=== PATIENT | male | born 1950 | race African-American/Black ===

== ENCOUNTER 2019-12-07 17:14 | Emergency (ER) | payer MEDICARE ==
[~2019-12-07] VITALS: Ht 182.9 cm; Wt 86.4 kg
[2019-12-07] MEDS ORDERED: LIDOCAINE/PF 1% 5 ML VIAL INJ ONE (17:45)
[2019-12-07] MEDS ORDERED: BACITRACIN 0.9 GM PACKET OINTMENT TP ONE (17:45)
[2019-12-07 18:30] VITALS: BP 126/81
== END 2019-12-07 19:02 | disposition home or self-care (01) ==
LOC: EMS 17:22
DX: S61.216A Laceration without foreign body of right little finger without damage to nail, initial encounter (principal); W45.8XXA Other foreign body or object entering through skin, initial encounter; Y93.89 Activity, other specified; Y92.89 Other specified places as the place of occurrence of the external cause; Y99.8 Other external cause status
CPT/HCPCS: 12002; 99282; J2001

== ENCOUNTER 2019-12-14 09:56 | Emergency (ER) | payer MEDICARE ==
[~2019-12-14] VITALS: Ht 182.9 cm; Wt 98.6 kg
[2019-12-14 10:47] VITALS: BP 145/90
== END 2019-12-14 10:53 | disposition home or self-care (01) ==
LOC: EMS 10:00
DX: S61.217D Laceration without foreign body of left little finger without damage to nail, subsequent encounter (principal); X58.XXXD Exposure to other specified factors, subsequent encounter